=== PATIENT | female | born 1980 | race Two or more races ===

== ENCOUNTER 2017-09-16 14:30 | Inpatient (IN) | payer OTHER ==
[~2017-09-16] VITALS: Ht 160 cm; Wt 106.1 kg
[~2017-09-16 14:30] MED LIST: PRENA1 TRUE CO1 EACH
[2017-09-22] MEDS ORDERED: INTEGRA CAPSUL1 EACH PO (06:11)
[2017-09-24] MEDS ORDERED: PROCTOFOAM-HC 110 GM RECTAL (09:40)
[2017-09-24] MEDS ORDERED: DOCUSATE SODIU100 MG PO (09:40)
[2017-09-24] MEDS ORDERED: PREPLUS CA-FE1 EACH PO (09:40)
[2017-09-24] MEDS ORDERED: Dermoplast SPRAY TOP (09:40)
== END 2017-09-24 11:19 | disposition home or self-care (01) | DRG 775 ==
LOC: OB/GYN 09-22 05:25 → LDR 09-22 05:25 → OB/GYN 09-22 16:38
PROC: 0DQR0ZZ Repair Anal Sphincter, Open Approach (ICD-10-PCS; principal; 2017-09-22)
PROC: 10E0XZZ Delivery of Products of Conception, External Approach (ICD-10-PCS; 2017-09-22)
PROC: 0W8NXZZ Division of Female Perineum, External Approach (ICD-10-PCS; 2017-09-22)
PROC: 4A1HXCZ Monitoring of Products of Conception, Cardiac Rate, External Approach (ICD-10-PCS; 2017-09-22)
PROC: 4A033R1 Measurement of Arterial Saturation, Peripheral, Percutaneous Approach (ICD-10-PCS; 2017-09-22)
DX: O70.20 Third degree perineal laceration during delivery, unspecified (principal); O69.81X0 Labor and delivery complicated by cord around neck, without compression, not applicable or unspecified; L73.2 Hidradenitis suppurativa; Z3A.39 39 weeks gestation of pregnancy; Z37.0 Single live birth

== ENCOUNTER 2022-11-29 18:29 | Emergency (ER) | payer OTHER ==
[~2022-11-29] VITALS: Ht 160 cm; Wt 94.3 kg
[~2022-11-29 18:29] MED LIST changes: +DOCUSATE SODIU100 MG PO; +Dermoplast SPRAY TOP; +INTEGRA CAPSUL1 EACH PO; +PREPLUS CA-FE1 EACH PO; +PROCTOFOAM-HC 110 GM RECTAL
== END 2022-11-29 22:44 | disposition home or self-care (01) ==
LOC: ER 18:29
DX: O26.892 Other specified pregnancy related conditions, second trimester (principal); Z3A.15 15 weeks gestation of pregnancy; Z91.013 Allergy to seafood; Z88.8 Allergy status to other drugs, medicaments and biological substances